=== PATIENT | male | born 1995 | race Caucasian/White ===

== ENCOUNTER 2016-09-15 04:10 | Emergency (ER) | payer SELFPAY ==
--- NOTE | 2016-09-15 04:59 | ED PDOC ---
HPI: Psych/Substance Abuse Time Seen by Provider: 09/15/16 04:15 Chief Complaint (Nursing): Psychiatric Evaluation Chief Complaint (Provider): Crisis Evaluation History Per: Patient History/Exam Limitations: no limitations Onset/Duration Of Symptoms: Hrs Additional History Per: Friend Additional Complaint(s): Akhil Oconnor is a 20 year old male who presents to the ED accompanied by his friend for crisis evaluation. Patient reports to both punching and hitting his head against the wall because he felt stressed and upset. Denies any injuries, homicidal or suicidal ideations. Of note, patient declined any further medical evaluation. Past Medical History Reviewed: Historical Data, Nursing Documentation, Vital Signs Vital Signs: Last Vital Signs Temp 98.3 F 09/15/16 04:31 Pulse 83 09/15/16 04:31 Resp 18 09/15/16 04:31 BP 126/53 L 09/15/16 04:31 Pulse Ox 92 L 09/15/16 04:31 - Medical History PMH: No Chronic Diseases - Surgical History Surgical History: No Surg Hx - Family History Family History: States: Unknown Family Hx - Allergies Allergies/Adverse Reactions: Allergies Allergy/AdvReac Type Severity Reaction Status Date / Time No Known Allergies Allergy Verified 09/15/16 04:30 Review of Systems ROS Statement: Except As Marked, All Systems Reviewed And Found Negative Psych: Positive for: Other (Stressed. No homicidal ideation). Negative for: Suicidal ideation Physical Exam - Reviewed Nursing Documentation Reviewed: Yes Vital Signs Reviewed: Yes - Physical Exam Appears: Positive for: Well, Non-toxic Head Exam: Positive for: ATRAUMATIC, NORMAL INSPECTION, NORMOCEPHALIC Skin: Positive for: Normal Color, Warm, Dry Eye Exam: Positive for: Normal appearance, EOMI, PERRL ENT: Positive for: Normal ENT Inspection Neck: Positive for: Normal, Painless ROM, Supple Cardiovascular/Chest: Positive for: Regular Rate, Rhythm. Negative for: Murmur , Tachycardia Respiratory: Positive for: Normal Breath Sounds. Negative for: Wheezing, Respiratory Distress Gastrointestinal/Abdominal: Positive for: Normal Exam Back: Positive for: Normal Inspection Rectal: Positive for: Deferred Extremity: Positive for: Normal ROM Lymphatic: Positive for: Deferred Neurologic/Psych: Positive for: Alert, Oriented - ECG O2 Sat by Pulse Oximetry: 92 Medical Decision Making Medical Decision Makin: Initial Impression: 20 year old male with crisis evaluation Initial Plan: Patient was evaluated by crisis and stabled for discharge home. Diagnosis: Adjustment disorder Patient declines any further medical evaluation. Scribe Attestation: Documented by Rishi Mello acting as a scribe for Roberto Rodriguez MD. Provider Scribe Attestation: All medical record entries made by the Scribe were at my direction and personally dictated by me. I have reviewed the chart and agree that the record accurately reflects my personal performance of the history, physical exam, medical decision making, and the department course for this patient. I have also personally directed, reviewed, and agree with the discharge instructions and disposition. Disposition - Clinical Impression Clinical Impression: Adjustment disorder - Disposition Disposition Time: 05:00 Condition: STABLE Instructions: Stress (ED)
[2016-09-15 12:33] VITALS: BP 126/53; PULSE 83; RESP 18; TEMP 98.3; O2SAT 92; BMI 22.1
== END 2016-09-15 05:00 | disposition home or self-care (01) ==
LOC: H.ER 04:10
DX: F43.20 Adjustment disorder, unspecified (principal)